=== PATIENT | male | born 1990 | race Caucasian/White ===

== ENCOUNTER 2022-05-08 18:07 | Emergency (ER) | payer MEDICAID ==
[~2022-05-08] VITALS: Ht 162.6 cm; Wt 70.5 kg
[2022-05-08] MEDS ORDERED: LIDOCAINE 1% 10 ML VIAL PERC ONE (21:15)
[2022-05-08] MEDS ORDERED: CEPH-558 PO (22:09)
[2022-05-08] MEDS ORDERED: BACI28OI29 TP (22:10)
[2022-05-08] MEDS ORDERED: NEOMYCIN/BACITRACIN/POLYMYXIN B OINTMENT PACKET TP ONE (22:15)
[2022-05-08] MEDS ORDERED: IBUP-2070 PO (22:29)
[2022-05-08] MEDS ORDERED: HYDR-4723 PO (22:30)
[2022-05-08 22:50] VITALS: BP 119/78
== END 2022-05-08 23:27 | disposition home or self-care (01) ==
LOC: EMS 18:26
DX: S61.021A Laceration with foreign body of right thumb without damage to nail, initial encounter (principal); F10.20 Alcohol dependence, uncomplicated; F12.90 Cannabis use, unspecified, uncomplicated; F17.210 Nicotine dependence, cigarettes, uncomplicated; J45.909 Unspecified asthma, uncomplicated; W26.0XXA Contact with knife, initial encounter; Y93.89 Activity, other specified; Y92.89 Other specified places as the place of occurrence of the external cause; Y99.8 Other external cause status
CPT/HCPCS: 99283; 73130; 12001; J3490

== ENCOUNTER 2025-05-10 02:33 | Inpatient (IN) | payer SELFPAY ==
[2025-05-10] VITALS (10 sets, daily range): RESP 16–17
[~2025-05-10 02:33] MED LIST: BACI28.410 TP; CEPH-558 PO; HYDR-4062 PO; IBUP-1492 PO
[2025-05-10] MEDS ORDERED: ZOLPIDEM TARTRATE 10 MG TABLET PO PRN (03:00)
[2025-05-10] MEDS ORDERED: INFLUENZA VIRUS VACCINE TVS (6MO+) 2025-26/PF 45 MCG/0.5 ML SYRINGE IM. ONE (04:45)
[2025-05-10] MEDS ORDERED: ACETAMINOPHEN 325 MG TABLET PO PRN (07:30)
[2025-05-10] MEDS ORDERED: ALBUTEROL SULFATE HFA 90 MCG/PUFF 8 GM INHALER IH PRN (07:30)
[2025-05-10] MEDS ORDERED: NICOTINE 14 MG/24 HOUR PATCH TD PRN (07:30)
[2025-05-10] MEDS ORDERED: PETROLATUM,WHITE 28 GM JELLY TP PRN (07:30)
[2025-05-10] MEDS ORDERED: MAGNESIUM HYDROXIDE SUSPENSION 30 ML UDCUP PO PRN (07:30)
[2025-05-10] MEDS ORDERED: DOCUSATE SODIUM 100 MG CAPSULE PO PRN (07:30)
[2025-05-10] MEDS ORDERED: ONDANSETRON 4 MG TABLET PO PRN (07:30)
[2025-05-10] MEDS ORDERED: GuaiFENesin/D-METHORPHAN [SUGAR-FREE] 200-20MG/10 ML SYRUP UDCUP PO PRN (07:30)
[2025-05-10] MEDS ORDERED: MAG HYDROX/ALUMINUM HYD/SIMETH ES 30 ML SUSPENSION UDCUP PO PRN (07:30)
[2025-05-10] MEDS ORDERED: LOPERAMIDE HCL 2 MG CAPSULE PO PRN (07:30)
[2025-05-10] MEDS ORDERED: IBUPROFEN 400 MG TABLET PO PRN (07:30)
[2025-05-10] MEDS: VENLAFAXINE HCL 75 MG ER CAPSULE PO SCH (11:15)
[2025-05-11 03:47] VITALS: RESP 17
[2025-05-11 08:00] VITALS: RESP 18
[2025-05-11 09:25] VITALS: RESP 18
[2025-05-11 13:00] VITALS: RESP 17
[2025-05-11 17:00] VITALS: RESP 18
[2025-05-11 22:45] VITALS: RESP 18
[2025-05-12 08:06] VITALS: RESP 16
[2025-05-12 11:58] VITALS: RESP 18
[2025-05-12] MEDS ORDERED: VENL-67 PO (15:03)
== END 2025-05-12 15:50 | disposition home or self-care (01) | DRG 885 ==
LOC: B3A 02:49
PROVIDERS: ADMIT Psychiatry & Neurology Child & Adolescent Psychiatry; ATTEND Psychiatry & Neurology Child & Adolescent Psychiatry
PROC: GZ56ZZZ Individual Psychotherapy, Supportive (ICD-10-PCS; principal; 2025-05-10)
PROC: GZ52ZZZ Individual Psychotherapy, Cognitive (ICD-10-PCS; 2025-05-10)
DX: F33.2 Major depressive disorder, recurrent severe without psychotic features (principal); Z91.148 Patient's other noncompliance with medication regimen for other reason; F41.9 Anxiety disorder, unspecified; F43.9 Reaction to severe stress, unspecified
CPT/HCPCS: Z7610